=== PATIENT | female | born 1960 | race African-American/Black ===

== ENCOUNTER 2016-07-26 10:56 | Emergency (ER) | payer BC ==
[~2016-07-26] VITALS: Ht 154.9 cm; Wt 85.0 kg
[~2016-07-26 10:56] MED LIST: BACT800T5 PO; BENZ100 PO; LOMO PO; THERTAB3; TRAM50 PO; ZOFR4TAB3 SL
[2016-07-26 10:58] VITALS: BP 138/69; PULSE 82; RESP 15; TEMP 98.4; O2SAT 99
[2016-07-26 12:48] LABS: AUTOMATED NEUTROPHIL # 4.8 TH/MM3 (1.8-7.7); BASOPHIL # 0.1 TH/MM3 (0-0.2); BASOPHIL % 1.3 % (0.0-2.0); EOSINOPHIL # 0.2 TH/MM3 (0-0.4); EOSINOPHIL % 2.4 % (0.0-4.0); HEMATOCRIT 30.6 % (35.0-46.0); HEMO FLAGS DIFF FINAL; LYMPH % 37.4 % (9.0-44.0); LYMPHOCYTE # 3.4 TH/MM3 (1.0-4.8); MEAN CELL VOLUME 89.6 FL (80.0-100.0); MEAN CORPUSCULAR HEMOGLOBIN 31.4 PG (27.0-34.0); MONO % 6.8 % (0.0-8.0); NEUT % 52.1 % (16.0-70.0); PLATELET COUNT 389 TH/MM3 (150-450); RED BLOOD COUNT 3.41 MIL/MM3 (4.00-5.30); RED CELL DISTRIBUTION WIDTH 13.8 % (11.6-17.2); WHITE BLOOD COUNT 9.2 TH/MM3 (4.0-11.0)
[2016-07-26 12:58] LABS: BLOOD, URINE NEG (NEG); GLUCOSE,URINE NEG (NEG); KETONE, URINE NEG (NEG); NITRITE,URINE NEG (NEG); SQUAMOUS EPITHELIAL CELL URINE 2 /hpf (0-5); URINE COLOR YELLOW (YELLW/STRAW)
[2016-07-26 13:00] LABS: COMMENT (UR) CULT NOT INDICATED; CULTURE IF INDICATED CULT NOT INDICATED
[2016-07-26] MEDS ORDERED: SODIUM CHLOR 0.9% 1000 ML INJ 1,000 ML IV SCH (15:38)
[2016-07-26] MEDS ORDERED: ONDANSETRON HCL 4 MG/2 ML VIAL IVP ONE (15:45)
[2016-07-26] MEDS ORDERED: MORPHINE SULFATE 4 MG/ML INJ IV PUSH ONE (15:45)
--- NOTE | 2016-07-26 15:47 | PD ---
HPI Chief Complaint: Abdominal Pain Time Seen by Provider: 15:44 Travel History International Travel<30 days: No Contact w/Intl Traveler<30days: No Traveled to known affect area: No History of Present Illness HPI 56-year-old female that presents to the ED for evaluation of lower abdominal pain on the right side. Per patient she's had this for 2 days and is significant. Per patient the pain is 6 out of 10 and gets worse with movement as well as with touch. She denies any urinary or bowel movement issues. She denies any vaginal discharge. Per patient she still has her appendix. She did have a gallbladder removed in 2008. She still has her ovaries and uterus. She states that the pain came on all of a sudden. Denies any fevers chills or sweats. No sick contacts. Takes no medications. She does have a history of sickle cell trait but denies any other acute disease. She does have an allergic to penicillin. She has not seen anybody for this. Pain does not radiate and stays mainly on the right lower quadrant of the abdomen. PFSH Past Medical History Sickle Cell Disease: Yes (SICKLE CELL TRAIT) Past Surgical History Section: Yes (x 3) Social History Alcohol Use: No Tobacco Use: No Substance Use: No Allergies-Medications (Allergen,Severity, Reaction): Coded Allergies: Penicillin (Verified Allergy, Unknown, rash, 07/26/16) Reported Meds & Prescriptions Reported Meds & Active Scripts Active Diclofenac Sodium DR (Diclofenac Sodium) 75 Mg Tabdr 75 Mg PO BID PRN Tramadol (Tramadol HCl) 50 Mg Tab 50 Mg PO Q6H PRN Review of Systems Except as stated in HPI: all other systems reviewed are Neg Physical Exam Narrative GENERAL: SKIN: Warm and dry. HEAD: Atraumatic. Normocephalic. EYES: Pupils equal and round. No scleral icterus. No injection or drainage. ENT: No nasal bleeding or discharge. Mucous membranes pink and moist. Tongue is midline. No uvula deviation. NECK: Trachea midline. No JVD. CARDIOVASCULAR: Regular rate and rhythm. No murmurs, S3, S4. RESPIRATORY: No accessory muscle use. Clear to auscultation. Breath sounds equal bilaterally. GASTROINTESTINAL: Abdomen soft, tender to palpation in the right lower quadrant , psoas sign positive, nondistended. Hepatic and splenic margins not palpable. MUSCULOSKELETAL: Extremities without clubbing, cyanosis, or edema. No obvious deformities. NEUROLOGICAL: Awake and alert. No obvious cranial nerve deficits. Motor grossly within normal limits. Five out of 5 muscle strength in the arms and legs. Normal speech. PSYCHIATRIC: Appropriate mood and affect; insight and judgment normal. Data Data Last Documented VS Vital Signs Date Time Temp Pulse Resp B/P Pulse Ox O2 Delivery O2 Flow Rate FiO2 07/26/16 17:08 97.8 89 16 141/62 99 Room Air Orders Complete Blood Count With Diff (07/26/16 11:03) Comprehensive Metabolic Panel (07/26/16 11:03) Urinalysis - C+S If Indicated (07/26/16 11:03) Lipase (07/26/16 11:03) Prothrombin Time / Inr (Pt) (07/26/16 15:38) Act Partial Throm Time (Ptt) (07/26/16 15:38) Ct Abd/Pel W Iv Contrast(Rout) (07/26/16 15:38) Iv Access Insert/Monitor (07/26/16 15:38) Morphine Inj (Morphine Inj) (07/26/16 15:45) Ondansetron Inj (Zofran Inj) (07/26/16 15:45) Sodium Chlor 0.9% 1000 Ml Inj (Ns 1000 M (07/26/16 15:38) Iohexol 350 Inj (Omnipaque 350 Inj) (07/26/16 18:05) Labs Laboratory Tests Test 07/26/16 07/26/16 07/26/16 07/26/16 12:30 12:35 15:50 16:40 White Blood Count 9.2 TH/MM3 Red Blood Count 3.41 MIL/MM3 Hemoglobin 10.7 GM/DL Hematocrit 30.6 % Mean Corpuscular Volume 89.6 FL Mean Corpuscular Hemoglobin 31.4 PG Mean Corpuscular Hemoglobin 35.0 % Concent Red Cell Distribution Width 13.8 % Platelet Count 389 TH/MM3 Mean Platelet Volume 8.5 FL Neutrophils (%) (Auto) 52.1 % Lymphocytes (%) (Auto) 37.4 % Monocytes (%) (Auto) 6.8 % Eosinophils (%) (Auto) 2.4 % Basophils (%) (Auto) 1.3 % Neutrophils # (Auto) 4.8 TH/MM3 Lymphocytes # (Auto) 3.4 TH/MM3 Monocytes # (Auto) 0.6 TH/MM3 Eosinophils # (Auto) 0.2 TH/MM3 Basophils # (Auto) 0.1 TH/MM3 CBC Comment DIFF FINAL Differential Comment Urine Color YELLOW Urine Turbidity CLEAR Urine pH 6.0 Urine Specific [place] 1.010 Urine Protein 30 mg/dL Urine Glucose (UA) NEG mg/dL Urine Ketones NEG mg/dL Urine Occult Blood NEG Urine Nitrite NEG Urine Bilirubin NEG Urine Urobilinogen LESS THAN 2.0 MG/DL Urine Leukocyte Esterase TRACE Urine RBC 2 /hpf Urine WBC 2 /hpf Urine Squamous Epithelial 2 /hpf Cells Microscopic Urinalysis Comment CULT NOT INDICATED Prothrombin Time 10.3 SEC Prothromb Time International 0.9 RATIO Ratio Activated Partial 25.9 SEC Thromboplast Time Sodium Level 140 MEQ/L Potassium Level 3.7 MEQ/L Chloride Level 108 MEQ/L Carbon Dioxide Level 24.3 MEQ/L Anion Gap 8 MEQ/L Blood Urea Nitrogen 14 MG/DL Creatinine 0.88 MG/DL Estimat Glomerular Filtration 80 ML/MIN Rate Random Glucose 103 MG/DL Calcium Level 8.8 MG/DL Total Bilirubin 3.0 MG/DL Aspartate Amino Transf 22 U/L (AST/SGOT) Alanine Aminotransferase 19 U/L (ALT/SGPT) Alkaline Phosphatase 74 U/L Total Protein 7.8 GM/DL Albumin 3.8 GM/DL Lipase 111 U/L [facility] Medical Decision Making Medical Screen Exam Complete: Yes Emergency Medical Condition: Yes Medical Record Reviewed: Yes Interpretation(s) CBC & BMP Diagram 07/26/16 12:30 07/26/16 16:40 LFts and lipase WNL UA WNl CT showed normal appendix Differential Diagnosis Pelvic pain versus abdominal pain versus diverticulitis versus pancreatitis versus appendicitis versus muscle strain versus kidney stone Narrative Course 56-year-old female that presents to the ED for evaluation of right lower quadrant pain. Patient was properly examined and was found to have signs and symptoms which appear to be concerning and consistent with possible appendicitis. My recommendations for labs and imaging. Patient is agreeable with this. IV was started. Patient was given IV pain medications and fluids. Labs and imaging showed no sign of acute disease. More especifically no appendicitis. Case discussed with my attending Dr Coe who agrees with plan. She agrees with discharge with meds for pain. patient will be given prescriptions for tramadol and diclofenac sodium. F/u with PCP or GI if this continues. See ED if worst. Vitals and physical exam reassuring. Patient feels improved. No sign of infection seen. Diagnosis Primary Impression: RLQ abdominal pain Patient Instructions: General Instructions, Narcotic given in the ED Additional Instructions: Take medications as prescribed. Follow-up with PCP. See ED for any worsening symptoms. Do not drink or drive while taking pain medication. Apply ice or heat as needed for pain Med/Other Pt SpecificInfo: Prescription(s) given Scripts Diclofenac Sodium DR 75 Mg Tabdr75 Mg PO BID PRN (PAIN SCALE 1 TO 10) #20 TAB Prov:Tony Coe MD 07/26/16 Tramadol 50 Mg Tab50 Mg PO Q6H PRN (PAIN) #14 TAB Ref 0 Prov:Tony Coe MD 07/26/16 Disposition: 01 DISCHARGE HOME Condition: Stable Etienne Ramirez Jul 26, 2016 15:47
[2016-07-26 16:17] LABS: APTT (PATIENT) 25.9 SEC (24.3-30.1); INTERNATIONAL NORMALIZED RATIO 0.9 RATIO; PROTHROMBIN TIME - PATIENT 10.3 SEC (9.8-11.6)
[2016-07-26 17:08] VITALS: BP 141/62; PULSE 89; RESP 16; TEMP 97.8; O2SAT 99
[2016-07-26 17:26] LABS: ALT (GPT) 19 U/L (10-53); ANION GAP 8 MEQ/L (5-15); AST (GOT) 22 U/L (15-37); BICARBONATE 24.3 MEQ/L (21.0-32.0); BLOOD UREA NITROGEN 14 MG/DL (7-18); CHLORIDE 108 MEQ/L (98-107); GLOMERULAR FILTRATION RATE 80 ML/MIN (>89); POTASSIUM 3.7 MEQ/L (3.5-5.1); SODIUM (NA) 140 MEQ/L (136-145)
[2016-07-26 17:29] LABS: ALKALINE PHOSPHATASE 74 U/L (45-117)
[2016-07-26] MEDS ORDERED: IOHEXOL 350 MG/ML 10 ML VIAL (for RAD DIAG) IV ONE (18:05)
--- NOTE | 2016-07-26 18:33 | RADRPT ---
EXAM DATE/TIME: 07/26/2016 17:59 [facility] COMPARISON: No previous studies available for comparison. INDICATIONS : Abdominal and right lower and upper quadrant pain. IV CONTRAST: 87 cc Omnipaque 350 (iohexol) IV ORAL CONTRAST: No oral contrast ingested. RADIATION DOSE: 16.14 CTDIvol (mGy) MEDICAL HISTORY : Sickle cell disease. SURGICAL HISTORY : Cholecystectomy. section. ENCOUNTER: Initial ACUITY: 2 days PAIN SCALE: 5/10 LOCATION: Right upper quadrant TECHNIQUE: Volumetric scanning of the abdomen and pelvis was performed. Using automated exposure control and ad justment of the mA and/or kV according to patient size, radiation dose was kept as low as reasonably achievable to obtain optimal diagnostic quality images. FINDINGS: Minimal opacity at the lung bases, likely atelectasis. Mild fatty liver. Cholecystectomy. 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 Adrenals and left kidney unremarkable. Atrophic right kidney. Small renal cysts present bilaterally. Pancreas unremarkable. No free fluid. No bowel obstruction. No adenopathy. Bladder calculi identified. There is colonic diverticular disease. No evidence for diverticulitis. CONCLUSION: 1. Colonic diverticulosis without evidence for diverticulitis. 2. 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 3. Atrophic right kidney. 4. Cholecystectomy with fatty liver. 5. Mild constipation. No bowel obstruction or free fluid. 6. Normal CT appearance of the appendix. Jerome Casillas MD on July 26, 2016 at 18:28 Board Certified Radiologist. This report was verified electronically.
[2016-07-26] MEDS ORDERED: TRAM50TA PO (18:39)
[2016-07-26] MEDS ORDERED: DICL75TA PO (18:39)
[2016-07-26 18:54] VITALS: BP 120/76; TEMP 97.8
[2016-08-23] MEDS ORDERED: FE A1TAB3 PO (11:45)
== END 2016-07-26 18:54 | disposition home or self-care (01) ==
LOC: NEPC 10:56
DX: R10.31 Right lower quadrant pain (principal); D57.3 Sickle-cell trait
CPT/HCPCS: 74177; 80053; 81001; 83690; 85025; 85610; 85730; 96361; 96374; 96375; 99284; J2270; J2405; J7030; Q9967